=== PATIENT | male | born 1980 | race Caucasian/White ===

== ENCOUNTER 2016-06-16 19:41 | Emergency (ER) ==
[2016-06-16] MEDS ORDERED: DILAUDID IV ONE ×2 (20:33→20:43)
--- NOTE | 2016-06-16 20:40 | PROVIDER DOCUMENTATION ---
HPI-General Adult - General Chief Complaint: Flank Pain Stated Complaint: flank pain, poss kidney stone Time Seen by Provider: 06/16/16 20:24 Allergies/Adverse Reactions: Patient Allergies Allergy/AdvReac Type Severity Reaction Status Date / Time morphine Allergy Intermediate severe Verified 04/22/16 16:17 itching Penicillins Allergy Unknown Unknown Verified 04/22/16 16:17 Home Medications: Home Medication List Medication Instructions Recorded Confirmed Last Taken Type Butalbital/APAP/Caffeine [Fioricet] 1 - 2 each PO Q4H PRN PRN #20 06/16/1504/22 Unknown Rx tablet Phenytoin Sodium Extended 300 mg PO DAILY #30 capsule 06/16/15 04/22/16 Unknown Rx [Dilantin] Ondansetron Odt [Zofran 4 mg Odt] 4 mg PO Q6H PRN PRN #20 tablet 06/16/16 Unknown Rx Oxycodone/APAP 10 mg/325 mg 1 each PO Q4H PRN PRN #15 tablet 06/16/16 Unknown Rx [Percocet-10] - History of Present Illness -Gen Adult Nature of Presenting Problems: patient comes in with right abd pain that wraps into his flank and right lumbar back. He has a hx of kidney stones. He had nausea before the pain started. Denies vomiting. Review of Systems - Adult - REVIEW OF SYSTEMS - ADULT Constitutional: reports: no symptoms reported. denies: chills, fever, fatique, night sweats, weight gain, weight loss Eyes: reports: no symptoms reported. denies: decreased vision, blurred vision, double vision, eye pain, redness Ears, Nose, Mouth & Throat: reports: no symptoms reported. denies: ear discharge, ear pain, hearing loss, tinnitus, epistaxis, nose pain, loose teeth, mouth/dental pain, mouth swelling, hoarseness, throat pain, throat swelling Cardiovascular: reports: no symptoms reported. denies: chest pain, edema, heart murmur, irregular heart rate, palpitations, poor circulation, PND Respiratory: reports: no symptoms reported. denies: chronic cough, cough, excessive sputum production, hemoptysis, shortness of breath, other Gastrointestinal: reports: see HPI, abdominal pain, nausea. denies: hematemesis , constipation, diarrhea, difficulty swallowing, frequent heartburn, poor appetite, rectal bleeding, vomiting Genitourinary: reports: see HPI, flank pain. denies: frequency, frequent UTI's , hesitency, incontinence, urinary retention, urgency Musculoskeletal: reports: no symptoms reported. denies: bone pain, back pain, frequent leg cramps, joint swelling, muscle aches, muscle weakness, neck pain Integumentary: reports: no symptoms reported. denies: hives, hair loss, nail changes, rash, skin sores/ulcer, skin thickening Neurological: reports: no symptoms reported. denies: headache/migraines, loss of balance, seizure, syncope, tremors Psychiatric: reports: no symptoms reported. denies: anxiety, anti-depressant use, alcohol/drug dependence, depression, emotional problems, panic attacks Endocrine: reports: no symptoms reported Hematologic/Lymphatic: reports: no symptoms reported Allergic/Immunologic: reports: no symptoms reported All Other Systems: Reviewed and Negative Past History - Adult - PAST MEDICAL HISTORY-ADULT Review of Records: reports: Old Records Reviewed, Nursing Assessment Review, Medications Reviewed, Social history reviewed & non-contributory. Major Childhood Illnesses: reports: denies history Cardiovascular: reports: HTN Respiratory: reports: denies history Gastrointestinal: reports: denies history Obstetrical/Gynecological: reports: denies history Genitourinary: reports: denies history Musculoskeletal: reports: neck/back injury Neurological: reports: Seizures/Epilepsy Psychiatric: reports: anxiety, depression Endocrine/Immune: reports: denies history Other Conditions: reports: denies history - PRIOR SURGERIES/PROCEDURES Surgical/Procedure History: reports: reviewed, not pertinent, orthopedic ( extremity) (neck) - PRIOR HOSPITALIZATIONS Prior Hospitalizations: reports: none - IMMUNIZATION STATUS Childhood Immunizations: See Nurse Assessment Flu Vaccine: See Nurse Assessment - FAMILY HISTORY Family History: reviewed, not pertinent - SOCIAL HISTORY Smoking: cigarettes, less than 1 pack/day Provider spent 3-5 mins advising pt. on dangers of tobacco.: Discussed manners to quit use, and f/u contacts for add'l counseling. Substance Use: none/never Alcohol Use Frequency: never Living Situation: family Physical Exam-General - PHYSICAL EXAM-ADULT Initial Vital Signs Reviewed: Yes - CONSTITUTIONAL General Appearance: alert, moderate distress - EYES Eyes: PERRL/EOMI, pink conjunctivae - HEAD, EARS, NOSE, MOUTH & THROAT HENMT: normocephalic/atraumatic, moist mucous membranes, normal ENT inspection - NECK Neck: non-tender, full range of motion, supple - RESPIRATORY Respiratory: chest non-tender, lungs clear, normal breath sounds, no pleuratic chest pain, no respiratory distress, no accessory muscle use, respiratory distress - CARDIOVASCULAR Cardiovascular: normal peripheral pulses, regular rate, rhythm - GASTROINTESTINAL (ABDOMEN) Abdominal Exam: normal bowel sounds, soft, no organomegaly, no pulsatile mass, tenderness. negative: rebound - GENITOURINARY Rectal Exam: deferred - MUSCULOSKELETAL Back Exam: normal inspection, no CVA tenderness, no vertebral tenderness Progress - CT/MRI 1 CT Study: Renal Stone Impression: See EMR Report CT Results: 3mm right UVJ mild hydro, bilat nonobstructing stones Departure - Departure Time of Disposition Order: 20:47 DIAGNOSIS: Renal calculus or stone Disposition: HOME 01 Certified Medical Emergency: Emergent Condition: Good Additional Instructions: follow up with urology if stone doesn't pass ED Follow Up Instructions: You have been treated by a care provider in the Emergency Department. These instructions are being provided to you so you can have an understanding of how to care for yourself upon discharge. Upon discharge from the Emergency Department, you are responsible for making arrangements for follow-up care by a physician of your choice. Take all prescribed medications as directed. Return to the Emergency Department immediately for any new or worsening symptoms. You may call the Physician Referral phone number at [phone] to obtain a list of Physicians who are taking new patients. Prescriptions: Oxycodone/APAP 10 mg/325 mg [Percocet-10] 1 each PO Q4H PRN PRN #15 tablet PRN Reason: Pain Ondansetron Odt [Zofran 4 mg Odt] 4 mg PO Q6H PRN PRN #20 tablet PRN Reason: Nausea Referrals: Jesus Manuel Chakraborty MD [STAFF PHYSICIAN] - Attestation - Physician/ ROHIT Attestation Patient care was provided by Advanced Practice Provider:: Yes Advanced Practice Provider:: Gina Ponce Advanced Practice Provider documentation review:: The Mid-level provider documentation, treatment plan and medical decision making was reviewed by the physician who agrees with all treatment and medical decision making by the MLP.
[2016-06-16] MEDS ORDERED: SODIUM CHLORIDE 0.9% INJ ONE (20:43)
[2016-06-16] MEDS ORDERED: PHENERGAN IV ONE (20:43)
[2016-06-16 20:47] LABS: URINE MICRO REVIEW NEEDED? NO; URINE SOURCE VOIDED
[2016-06-16 20:55] LABS: BILIRUBIN URINE NEGATIVE (NEGATIVE); BLOOD URINE NEGATIVE (NEGATIVE); COLOR YELLOW; GLUCOSE URINE NEGATIVE (NEGATIVE); LEUKOCYTES URINE NEGATIVE (NEGATIVE); NITRITE URINE NEGATIVE (NEGATIVE); PH URINE 6.5; PROTEIN URINE NEGATIVE (NEGATIVE); SP GRAVITY URINE 1.008; TURBIDITY URINE HAZY (CLEAR); UROBILINOGEN URINE NORMAL (NORMAL)
[2016-06-16 20:56] LABS: UR EPITHELIAL CELLS <10 /HPF (<10); URINE BACTERIA 1+ /HPF; URINE RBC <10 /HPF (<10); URINE WBC <10 /HPF (<10)
[2016-06-16 20:59] LABS: UR AMPHETAMINES QUAL NONE DETECTED (NONE DETECT); UR BARBITUATES QUAL NONE DETECTED (NONE DETECT); UR BENZODIAZEPIN QUAL NONE DETECTED (NONE DETECT); UR CANNABINOIDS QUAL NONE DETECTED (NONE DETECT); UR COCAINE QUAL NONE DETECTED (NONE DETECT); UR METHADONE QUAL NONE DETECTED (NONE DETECT); UR OPIATES QUAL NONE DETECTED (NONE DETECT); UR OXYCODONE QUAL NONE DETECTED (NONE DETECT); UR PCP QUAL NONE DETECTED (NONE DETECT)
--- NOTE | 2016-06-16 21:36 | Diag Imaging Result Document ---
PROCEDURE NAME: RENAL STONE SEARCH - 06/16/2016 CT ABDOMEN AND PELVIS WITHOUT ORAL OR INTRAVENOUS CONTRAST Dose reduction protocol. COMPARISON: 10/17/14 FINDINGS: Normal spleen and adrenal glands. No inflammation about the pancreas or gallbladder. No focal hepatic abnormality identified on this noncontrasted exam. There are multiple bilateral nonobstructing renal stones. There is moderate right-sided hydronephrosis secondary to a 3-mm stone at the ureterovesical junction. No left-sided hydronephrosis. Normal aorta. No bowel obstruction. Normal appendix. No abscess. No free air. There is stool throughout the colon. The urinary bladder is distended and appears normal. Prostate is not enlarged. There are bulging discs at L3-4 and L4-5 resulting in spinal stenosis. Findings are more pronounced at L3- 4. IMPRESSION: 1. There is a 3-mm stone in the distal right ureter at the ureterovesical junction with moderate hydronephrosis. 2. Multiple bilateral nonobstructing renal stones. 3. Constipation. 4. Bulging discs with spinal stenosis at L3-4 and L4-5. A preliminary report was given at 8:34 p.m.
[2016-06-16 21:58] VITALS: BP 124/69
== END 2016-06-16 21:55 | disposition home or self-care (01) ==
LOC: EDBD → ED 19:41
DX: N13.2 Hydronephrosis with renal and ureteral calculous obstruction (principal); K59.00 Constipation, unspecified; M51.86 Other intervertebral disc disorders, lumbar region; M48.06 Spinal stenosis, lumbar region; R10.9 Unspecified abdominal pain; M54.5 Low back pain; R11.0 Nausea; I10 Essential (primary) hypertension; R56.9 Unspecified convulsions; F17.210 Nicotine dependence, cigarettes, uncomplicated; Z79.899 Other long term (current) drug therapy; Z71.6 Tobacco abuse counseling; Z87.442 Personal history of urinary calculi
CPT/HCPCS: 74176; 81001; G0480; J1170; J2550; 80324; 80345; 80346; 80349; 80353; 80358; 80361; 80365; 83992